=== PATIENT | male | born 1975 | race African-American/Black ===

== ENCOUNTER 2017-08-21 00:15 | Emergency (ER) | payer MEDICAID, SELFPAY ==
[~2017-08-21] VITALS: Ht 177.8 cm; Wt 108.9 kg
[~2017-08-21 00:15] MED LIST: DOXYCYCLINE MO100 MG ORAL; NKM; NORCO 5-325 TA1 EACH ORAL
[2017-08-21 00:25] VITALS: BP 126/77
[2017-08-21] MEDS ORDERED: HYDROmorphone 1mg/ml Carpuject IVP ONE (00:30)
--- NOTE | 2017-08-21 00:31 | Emergency Room Report ---
History of Present Illness General Chief Complaint: Dizziness Source: Patient Present Illness HPI Is a 42-year-old male with no past medical history. He presents with chief complaint of acute onset abdominal pain and syncope. Onset just prior to arrival. He was watching TV and had acute onset pain. Also with episode vomiting. He said that his said he passed out. Rodessa dizzy and lightheaded. No diarrhea. Never had this problem before. No hematuria. Pain is 10 out of 10. Worse with movement. Later on it got more history from his . She said that he hasn't been eating much the last month. Not hungry. He also complaining of headache. He had over a 50 pound weight loss. Does not on purpose. He was days and dizzy and had a syncopal episode. Then he had vomiting and pain. Allergies: Coded Allergies: No Known Allergies (Unverified , 06/20/13) Patient History Past Medical History: see triage record, old chart reviewed Past Surgical History: other - Hernia Pertinent Family History: none Social History: Denies: smoking Immunizations: other Reviewed Nursing Documentation: PMH: Agreed, PSxH: Agreed Nursing Documentation-PMH Past Medical History: No Stated History Review of Systems Eye: Denies: eye pain, blurred vision ENT: Denies: ear pain, nose congestion, throat swelling Respiratory: Denies: cough, shortness of breath Cardiovascular: Denies: chest pain, palpitations Gastrointestinal: Reports: abdominal pain, Denies: diarrhea, nausea, vomiting Musculoskeletal: Denies: back pain, joint pain Skin: Denies: rash Neurological: Reports: dizziness, Denies: headache, numbness Endocrine: Denies: increased thirst, increased urine Hematologic/Lymphatic: Denies: easy bruising All Other Systems: negative except mentioned in HPI Physical Exam Vital Signs Date Time Temp Pulse Resp B/P (MAP) Pulse Ox O2 Delivery O2 Flow Rate FiO2 08/21/17 00:19 98.2 83 18 143/87 98 Room Air vitals normal Sp02 EP Interpretation: reviewed, normal General Appearance: well appearing, no apparent distress, alert Head: normocephalic, atraumatic Eyes: bilateral eye PERRL, bilateral eye EOMI ENT: hearing grossly normal, normal pharynx Neck: full range of motion, supple, no meningismus Respiratory: chest non-tender, lungs clear, normal breath sounds Cardiovascular #1: regular rate, rhythm, no murmur Gastrointestinal: normal bowel sounds, no mass, no organomegaly, no bruit, non- distended, tenderness - Left lower quadrant Musculoskeletal: back normal, gait/station normal, normal range of motion Neurologic: alert, oriented x3 Psychiatric: mood/affect normal Skin: warm/dry Medical Decision Making Diagnostic Impression: Primary Impression: Syncope Qualified Codes: R55 - Syncope and collapse Additional Impressions: Weight loss, unintentional Abdominal pain Qualified Codes: R10.84 - Generalized abdominal pain Dizziness ER Course Patient presents with weakness and syncope. He has also intended weight loss of 50 pounds last month. Patient said that he is under a lot of stressed. Rodessa that he may have depression. No evidence of tumor or infection. The skin of head negative for any mass. CT abdomen unremarkable. He may need colonoscopy to rule out colon cancer. He is otherwise stable now. We'll discharge home. Lab Results Impression labs normal EKG Diagnostic Results Rate: normal Rhythm: NSR ST Segments: no acute changes Rhythm Strip Diag. Results Rhythm Strip Time: 01:48 EP Interpretation: yes Rate: 60 Rhythm: NSR, no PVC's, no ectopy Last Vital Signs Date Time Temp Pulse Resp B/P (MAP) Pulse Ox O2 Delivery O2 Flow Rate FiO2 08/21/17 00:19 98.2 83 18 143/87 98 Room Air Status: improved Disposition: HOME, SELF-CARE Condition: Stable Referrals: NOT CHOSEN IPA/MD,REFERRING (PCP) Patient Instructions: Syncope Additional Instructions: Followup with your DrSiri in 7 days. You may be referred to see a psychiatrist/ psychologist. Return if symptom worsen. MARGOT HERMAN M.D. Aug 21, 2017 00:31
[2017-08-21 00:54] LABS: BASOPHILS % (AUTO) 0.9 % (0.0-2.0); EOSINOPHILS % (AUTO) 4.6 % (0.0-3.0); LYMPHOCYTES % (AUTO) 41.7 % (20.0-45.0); MEAN CORPUSCULAR HEMOGLOBIN 33.4 PG (27.0-31.0); MEAN CORPUSCULAR HGB CONC 34.9 G/DL (32.0-36.0); MEAN CORPUSCULAR VOLUME 96 FL (80-99); MONOCYTES % (AUTO) 5.7 % (1.0-10.0); NEUTROPHILS % (AUTO) 47.1 % (45.0-75.0); PLATELET COUNT 170 K/UL (150-450); RED BLOOD COUNT 4.73 M/UL (4.70-6.10); RED CELL DISTRIBUTION WIDTH 12.9 % (11.6-14.8); WHITE BLOOD COUNT 7.9 K/UL (4.8-10.8)
[2017-08-21 01:07] LABS: APPEARANCE,URINE CLEAR; KETONES,URINE NEGATIVE (NEGATIVE); LEUKOCYTE ESTERASE ,URINE 1+ (NEGATIVE); NITRITE,URINE NEGATIVE (NEGATIVE); PH,URINE 5 (4.5-8.0); PROTEIN,URINE NEGATIVE (NEGATIVE); UROBILINOGEN,URINE 4 MG/DL (0.0-1.0)
[2017-08-21 01:12] LABS: ALANINE AMINOTRANSFERASE 9 U/L (3-41); ALBUMIN/GLOBULIN RATIO 1.3 (1.0-2.7); ANION GAP 12 (5-15); ASPARTATE AMINO TRANSFERASE 13 U/L (5-40); CALCIUM 9.3 mg/dL (8.6-10.2); CARBON DIOXIDE 27 mEQ/L (20-30); CHLORIDE 101 mEQ/L (98-107); GLOMERULAR FILTRATION RATE > 60 mL/min (>60); HEMOLYSIS 6; LIPASE 17 U/L (< 60); POTASSIUM 3.5 mEQ/L (3.4-4.9); SODIUM 140 mEQ/L (135-145); TOTAL PROTEIN 7.4 g/dL (6.6-8.7)
[2017-08-21 01:30] LABS: BACTERIA,URINE FEW /HPF; MUCUS,URINE MODERATE /LPF (NONE/OCC); RBC,URINE 0-2 /HPF (0 - 0); SQUAMOUS EPITHELIAL CELL,UR FEW /LPF (NONE/OCC)
[2017-08-21 02:15] VITALS: BP 116/72
[2017-08-21 03:50] VITALS: BP 125/75
[2017-08-21 03:55] VITALS: BP 125/75
--- NOTE | 2017-08-21 08:54 | Diagnostic Imaging Report ---
Indication: Headache Technique: Continuous helical CT scanning of the head was performed utilizing automated exposure control without intravenous contrast material. Axial and coronal reconstructions were obtained. Comparison: None CT dose: Total DLP 1372 mGycm; CTDI vol 70.4 mGy Findings: There is no acute intracranial hemorrhage, mass effect or cortical edema. The ventricles, cisterns and sulci are within normal limits. The posterior fossa and fourth ventricle are unremarkable. Sellar and suprasellar regions are grossly unremarkable. Visualized mastoid air cells and paranasal sinuses are unremarkable. No focal lesions of the bony calvarium or soft tissues of the scalp are seen. Impression: No evidence of acute intracranial hemorrhage, mass effect or cortical edema. MRI may be obtained for more sensitive evaluation as clinically indicated. The CT scanner at [facility] is accredited by the [employer] and the scans are performed using protocols designed to limit radiation exposure to as low as reasonably achievable to attain images of sufficient resolution adequate for diagnostic evaluation.
--- NOTE | 2017-08-21 09:01 | Diagnostic Imaging Report ---
Indication: Abdominal pain Technique: CT scan of the abdomen and pelvis utilizing automated exposure control without intravenous or oral contrast. Axial, sagittal and coronal images were obtained. CT dose: Total DLP 1574 mGycm; CTDI vol 29.1 mGy Comparison: 06/20/13 Findings: Evaluation of the solid organs is limited without intravenous contrast material. There is no hydronephrosis, renal or ureteral calculi. The liver, adrenal glands, spleen and pancreas are unremarkable. No CT evident gallstones are seen. The small bowel loops are normal in caliber. The appendix is normal. There is colonic diverticulosis without diverticulitis. There is no free intraperitoneal fluid or air. Bladder is not well distended. Atherosclerotic changes are seen. Abdominal aorta is normal in caliber. Degenerative changes of the spine are seen. There is mild anterior wedging of T12. There is a small fat-containing right inguinal hernia. There is mild degenerative spurring of the bilateral hips. Impression: No hydronephrosis, renal or ureteral calculi. Colonic diverticulosis without diverticulitis. Normal appendix. Degenerative changes of the spine with vacuum phenomenon at L5/S1. Small fat-containing right normal hernia. Approximately 1.2 x 3.5 cm area of oblong focal low density involving the left gluteus minimus muscle could represent an intramuscular cyst. Further evaluation recommended as indicated. Other findings as above. The CT scanner at [facility] is accredited by the [employer] and the scans are performed using protocols designed to limit radiation exposure to as low as reasonably achievable to attain images of sufficient resolution adequate for diagnostic evaluation.
== END 2017-08-21 03:55 | disposition home or self-care (01) ==
LOC: EMR 00:28
DX: R55 Syncope and collapse (principal); R63.4 Abnormal weight loss; R10.9 Unspecified abdominal pain; R42 Dizziness and giddiness; K57.30 Diverticulosis of large intestine without perforation or abscess without bleeding
CPT/HCPCS: 36415; 70450; 74176; 80053; 80300; 81003; 83690; 85025; 93005; 96361; 96374; 96375; 99284; J1170; J2405

== ENCOUNTER 2017-09-03 11:11 | Emergency (ER) | payer MEDICAID ==
[~2017-09-03] VITALS: Ht 177.8 cm; Wt 113.4 kg
[2017-09-03 11:13] VITALS: BP 146/86
[2017-09-03] MEDS ORDERED: Ketorolac 60mg Inj IM ONE (11:30)
[2017-09-03] MEDS ORDERED: IBUPROFEN600 MG ORAL (12:40)
[2017-09-03] MEDS ORDERED: NORCO 5-325 TA1 EACH ORAL (12:40)
[2017-09-03 12:42] VITALS: BP 142/86
[2017-09-03 12:45] VITALS: BP 142/86
--- NOTE | 2017-09-03 13:18 | Emergency Room Report ---
History of Present Illness General Chief Complaint: Pain Source: Patient Present Illness HPI Patient is a 42-year-old male who presented after increased right knee pain right hip pain and low back pain after fall. Patient reported having fall from a scaffold approximately 4-5 feet falling on hard dirt. He denied loss of consciousness. The patient reported falling onto his leg and having increased pain to his right hip as well as his right knee. The injury occurred several hours prior to arrival. He denies neck pain. He denied numbness or weakness to his right leg. Allergies: Coded Allergies: No Known Allergies (Unverified , 06/20/13) Patient History Past Medical History: unable to obtain Reviewed Nursing Documentation: PMH: Agreed, PSxH: Agreed Nursing Documentation-PMH Past Medical History: No Stated History Review of Systems All Other Systems: negative except mentioned in HPI Physical Exam Vital Signs Date Time Temp Pulse Resp B/P (MAP) Pulse Ox O2 Delivery O2 Flow Rate FiO2 09/03/17 11:13 97.9 91 15 146/86 97 Room Air Sp02 EP Interpretation: reviewed, normal General Appearance: normal inspection, alert, no apparent distress, GCS 15 Head: normocephalic, atraumatic Eyes: normal eye exam, PERRL, EOMI, lids + conjunctiva normal, no hyphema, no racoon eyes ENT: normal ENT inspection, TMs + canals normal, oropharynx normal, no mays signs Neck: trach midline, no bony tend, full range of motion without pain Respiratory: effort normal, no retractions, clear to auscultation, chest symmetrical, palpation of chest normal, speaking in full sentences Cardiovascular: regular rate, rhythm, no JVD Cardiovascular #2: 2+ radial (R), 2+ radial (L), 2+ dorsalis pedis (R), 2+ dorsalis pedis (L) Gastrointestinal: normal inspection, non-tender, non-distended, no rebound/ guarding, normal bowel sounds Genitourinary: normal inspection Musculoskeletal: non-tender, back normal, other - right knee limited ROM able to extend knee, acl lax with anterior drawer. Skin: no rash, no lacerations, normal palpation Lymphatic: normal inspection Neurologic: oriented x3, sensory intact, motor strength/tone normal, normal speech Psychiatric: normal inspection, memory normal, mood normal, no suicidal/ homicidal ideation Medical Decision Making Diagnostic Impression: Primary Impression: Sprain, ACL Additional Impression: Patellar tendon strain ER Course Patient presented for knee pain. Differential diagnosis included was not limited to fracture, popliteal aneurysm, arthritis, dislocation, ligamentous injury, septic joint among others.Because of complexity of patient's case imaging studies were ordered. X-ray imaging of the lumbar spine 3 views interpreted by me showed degenerative changes without evident fracture. knee x- ray showed high riding patella as well as degenerative changes. Pelvis x-ray showed no evident fracture. The patient is advised followup with primary care doctor for orthopedic referral orthopedics. The patient placed in a knee immobilizer and given crutches.The patient is advised to follow up with primary care doctor in 1-2 days. Patient is advised to return if any worsening condition or if any changes in status that are concerning. Other X-Ray Diagnostic Results Other X-Ray Diagnostic Results #1: X-Ray ordered: knee # of Views/Limited Vs Complete: 3 View Indication: Pain EP Interpretation: Yes Interpretation: no dislocation, other - soft tissue swelling, degenerative changes, high riding patella Impression: Other - soft tissue swelling, high riding patella Electronically Signed by: Electronically signed by Dr. Rober Faust M.D. Other X-Ray Diagnostic Results #2: X-Ray ordered: Lumbar spine # of Views/Limited Vs Complete: 3 View Indication: Pain EP Interpretation: Yes Interpretation: no dislocation, no soft tissue swelling, no fractures Impression: No acute disease Electronically Signed by: Electronically signed by Dr. Rober Faust M.D. Other X-Ray Diagnostic Results #3: X-Ray ordered: pelvis # of Views/Limited Vs Complete: 1 View Indication: Pain EP Interpretation: Yes Interpretation: no dislocation, no soft tissue swelling, no fractures, nonspecific bowel gas Impression: No acute disease Electronically Signed by: Electronically signed by Dr. Rober Faust M.D. Last Vital Signs Date Time Temp Pulse Resp B/P (MAP) Pulse Ox O2 Delivery O2 Flow Rate FiO2 09/03/17 12:45 97.9 89 15 142/86 97 Room Air Status: improved Disposition: HOME, SELF-CARE Condition: Stable Scripts Hydrocodone Bit/Acetaminophen 5-325* (NORCO 5-325*) 1 Each Tablet 1 TAB ORAL Q6H Y for For Pain, #20 TAB 0 Refills Prov: Rober Faust 09/03/17 Ibuprofen* (MOTRIN*) 600 Mg Tablet 600 MG ORAL Q8H Y for For Pain, #30 TAB 0 Refills Prov: Rober Faust 09/03/17 Patient Instructions: Patellar Tendon Tear or Disruption With Rehab-[facility], Knee Sprain Rober Faust Sep 03, 2017 13:18
--- NOTE | 2017-09-04 10:17 | Diagnostic Imaging Report ---
Indication: Pelvic pain Technique: XRAY PELVIS 1 VIEW Comparison: None Findings: There is no radiographically evident acute fracture or dislocation. There is convexity of the bilateral lateral femoral head and neck junctions. Bone mineralization is normal. Soft tissues are grossly unremarkable. Impression: No radiopaque the evident acute osseous abnormality. Clinical correlation recommended. Convexity of the bilateral lateral femoral head and neck junctions could represent acetabular impingement. Clinical correlation recommended.
--- NOTE | 2017-09-04 10:18 | Diagnostic Imaging Report ---
Indication: Back pain Technique: XRAY SPINE LUMBAR 2-3V Comparison: None Findings: There is no gross fracture. Lumbar alignment is within normal limits. Degenerative endplate osteophytes are seen with moderate disc space narrowing of T12/L1, moderate disc space narrowing of L1/L2, mild disc space narrowing of L2/L3, L3/L4 and L4/L5 and severe disc space narrowing of L5/S1. Degenerative facet arthropathy is noted. Impression: No gross fracture or lumbar malalignment. Degenerative spondylosis as above. Further evaluation recommended as indicated.
--- NOTE | 2017-09-04 10:22 | Diagnostic Imaging Report ---
Indication: Right knee pain Technique: XRAY KNEE THREE VIEWS RIGHT Comparison: None Findings: There is no acute fracture or dislocation. Tricompartment osteophytes are seen with mild medial and lateral and patellofemoral compartment joint space narrowing. There is patella joann. No obvious joint effusion is seen. Impression: No radiographically evident acute osseous abnormality. Right knee osteoarthrosis. Patella joann.
== END 2017-09-03 12:50 | disposition home or self-care (01) ==
LOC: EMR 11:41
DX: S83.511A Sprain of anterior cruciate ligament of right knee, initial encounter (principal); S76.111A Strain of right quadriceps muscle, fascia and tendon, initial encounter; W19.XXXA Unspecified fall, initial encounter; Y92.89 Other specified places as the place of occurrence of the external cause; M17.11 Unilateral primary osteoarthritis, right knee; M47.816 Spondylosis without myelopathy or radiculopathy, lumbar region
CPT/HCPCS: 29530; 72020; 72170; 96372; 99284